=== PATIENT | female | born 1990 | race Caucasian/White ===

== ENCOUNTER 2020-03-26 14:21 | Emergency (ER) | payer BC, SELFPAY ==
[2020-03-26 14:31] VITALS: BP 119/59; PULSE 73; RESP 16; TEMP 36.6; O2SAT 99
[2020-03-26 14:57] VITALS: BP 119/59; PULSE 73; RESP 16; TEMP 36.6; O2SAT 99
--- NOTE | 2020-03-26 15:12 | ED.WOUNDLAC ---
HPI - Wound/Laceration General Chief Complaint: Wound/Laceration Stated Complaint: Laceration on Thumb Time Seen by Provider: 03/26/20 14:36 Source: patient and RN notes reviewed Mode of arrival: ambulatory Limitations: no limitations History of Present Illness HPI narrative: Patient presents today complaining of a laceration to her left thumb that was sustained approximately 1 hour prior to arrival while at a friend's house. The knife was a brand-new knife and she was getting ready to dress a deer. She is up-to-date on her tetanus vaccine. Denies any current pain. She did clean with peroxide prior to arrival. Denies numbness or tingling. Related Data Home Medications Medication Instructions Recorded Confirmed Nexplanon 03/26/20 Allergies Allergy/AdvReac Type Severity Reaction Status Date / Time No Known Allergies Allergy Unverified 05/14/17 12:42 Review of Systems Review of Systems: Narrative: CONSTITUTIONAL: Denies body aches, fever, chills, or sweats. EYES: Denies visual changes, redness, or discharge. ENT: Denies rhinorrhea, congestion, sore throat, or otalgia. CARDIOVASCULAR: Denies chest pain, palpitations, or edema. RESPIRATORY: Denies cough or dyspnea. GASTROINTESTINAL: Denies abdominal pain, nausea, vomiting, or diarrhea. GENITOURINARY: Denies dysuria or hematuria. SKIN: Denies rash, itching. + Left thumb laceration MUSCULOSKELETAL: Denies back pain, joint pain, or myalgia. NEUROLOGIC: Denies headache, numbness, tingling, or weakness. PSYCH: Denies depression or anxiety. [facility] Family History Family History (Updated 01/01/14 @ 07:13 by DOCTOR UNKNOWN) Grandparent Family history of lung cancer Family history of coronary artery disease Malignant neoplasm of prostate Family history of malignant neoplasm of urinary bladder Father Family history of coronary artery disease Other Family history of malignant neoplasm Social History Social History (Updated 03/26/20 @ 15:27 by Camille Schwarz, [facility], ) Smoking status: Former smoker Second hand tobacco smoke exposure: Yes Smoking end date: 05/07/10 Alcohol intake: never Comments At time of signature, I have reviewed and agree with nursing past medical, surgical, social and family history unless otherwise noted. Please see nursing chart for further information. There is no relevant family history pertinent to the presenting complaint Exam Narrative: Exam Narrative: GENERAL: Well-appearing, well-nourished, and in no acute distress. HEAD: Normocephalic, atraumatic. EYES: EOMI. No redness or drainage. Conjunctivae normal. ENT: Mucous membranes pink and moist. NECK: Normal AROM. CHEST: No respiratory distress. EXTREMITIES: Left first finger: 3 cm full-thickness flap laceration to the dorsum of the MCP. Full strong AROM against resistance. Extensor tendon is visualized and is intact. Distal sensation intact. Capillary refill normal. Color normal. Nail intact. SKIN: Warm, dry, no rash. Capillary refill normal. Normal skin turgor. NEURO: No focal deficits. Alert and oriented x3. Gait steady. PSYCH: Normal affect. No signs of depression or anxiety. Course Vital Signs Vital signs: Vital Signs Temperature 97.8 F 03/26/20 14:31 Pulse Rate 73 03/26/20 14:31 Respiratory Rate 16 03/26/20 14:31 Blood Pressure 119/59 L 03/26/20 14:31 Pulse Oximetry 99 03/26/20 14:31 Temperature 97.8 F 03/26/20 14:57 Pulse Rate 73 03/26/20 14:57 Respiratory Rate 16 03/26/20 14:57 Blood Pressure 119/59 L 03/26/20 14:57 Pulse Oximetry 99 03/26/20 14:57 Reviewed Procedures Laceration Laceration 1: Date: 03/26/20 Time: 15:00 Site: hand Side (If applicable): left Size (cm): 3 Description: flap Depth: simple, single layer Local Anesthetic: lidocaine 1% Amount of anesthesia used (mL): 2 Pre-repair: wound explored, irrigated and irrigated
== END 2020-03-26 15:30 | disposition home or self-care (01) ==
PROVIDERS: Emergency Provider Nurse Practitioner; PCP Family Medicine
DX: S61.012A Laceration without foreign body of left thumb without damage to nail, initial encounter (principal); W26.0XXA Contact with knife, initial encounter; Z87.891 Personal history of nicotine dependence
CPT/HCPCS: 12002; 99212; G0463